=== PATIENT | male | born 1985 | race Caucasian/White ===

== ENCOUNTER 2018-03-11 22:02 | Emergency (ER) | payer SELFPAY ==
[2018-03-11 22:37] LABS: Absolute Lymphocytes (CBC) 1.5 K/uL (0.7-4.9); Absolute Monocytes 1.9 K/uL (0.1-1.3); Absolute Neutrophil 12.4 K/uL (1.8-8.0); Basophils % 0.5 % (0-1.3); Eosinophils % 0.2 % (0-4.4); Hematocrit 47.6 % (39.6-49.0); Lymphocytes % 9.6 % (15.3-44.8); MCH 30.1 pg (27.0-35.0); MCV 87.8 fL (80-100); MPV 7.8 fL (7.6-11.3); Monocytes % 11.9 % (3.3-12.3); RBC Red Blood Cell Count 5.43 M/uL (4.33-5.43)
[2018-03-11 23:04] LABS: Protime INR 1.03
[2018-03-11 23:15] LABS: ALT/SGPT 20 U/L (12-78); AST/SGOT 25 U/L (15-37); Albumin 4.8 g/dL (3.4-5.0); Alkaline Phosphatase 68 U/L (45-117); BUN Blood Urea Nitrogen 18 mg/dL (7-18); Bicarbonate 23 mmol/L (21-32); Bilirubin Direct 0.3 mg/dL (0-0.2); Bilirubin Total 1.6 mg/dL (0.2-1.0); Glucose Level 93 mg/dL (74-106); Potassium 3.2 mmol/L (3.5-5.1); Sodium Level 142 mmol/L (136-145)
[2018-03-11 23:16] LABS: Alcohol Serum/Plasma 6 mg/dL (0-3)
[2018-03-12] MEDS ORDERED: POTASSIUM CL SA 10 MEQ TAB PO ONE (01:46)
[2018-03-12 03:06] LABS: Barbiturates NEGATIVE (NEGATIVE); Benzodiazepines POSITIVE (NEGATIVE); Cocaine NEGATIVE (NEGATIVE); METHAMPHETAM POSITIVE (NEGATIVE); Methadone NEGATIVE (NEGATIVE); Opiates NEGATIVE (NEGATIVE); Phencyclidine NEGATIVE (NEGATIVE); THC Cannibis NEGATIVE (NEGATIVE)
[2018-03-12 03:39] LABS: Urine Blood NEGATIVE (NEG); Urine Glucose NEGATIVE (NEG); Urine Protein TRACE (NEG); Urine Specific Gravity 1.015 (1.005-1.030)
--- NOTE | 2018-03-12 07:48 | ER ---
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 a hallway bed/chair. Sitter present at this time. 10:00 Pt. is pacing. Appears restless. pt states "i want my quest to leave im tired of being tw2 watched", provider notified and medicated as ordered. Safety Checks: Personal items have been removed. The door is open or patient has been placed in a hallway bed/chair. Sitter present at this time. 10:15 Safety Checks: Personal items have been removed. The door is open or patient has been tw2 placed in a hallway bed/chair. Sitter present at this time. 10:30 Safety Checks: Personal items have been removed. The door is open or patient has been tw2 placed in a hallway bed/chair. Sitter present at this time. 10:45 Safety Checks: Personal items have been removed. The door is open or patient has been tw2 placed in a hallway bed/chair. Sitter present at this time. 11:00 Safety Checks: Personal items have been removed. The door is open or patient has been tw2 placed in a hallway bed/chair. Sitter present at this time. 11:15 Safety Checks: Personal items have been removed. The door is open or patient has been tw2 placed in a hallway bed/chair. Sitter present at this time. 11:30 Safety Checks: Personal items have been removed. The door is open or patient has been tw2 placed in a hallway bed/chair. Sitter present at this time. 11:34 Safety checks: Items removed: yes. Door open/sign placed on door: yes. Family/friend dg1 present: no. 11:45 Safety Checks: Personal items have been removed. The door is open or patient has been tw2 placed in a hallway bed/chair. Sitter present at this time. 12:00 No apparent distress. Appears restless. Safety Checks: Personal items have been tw2 removed. The door is open or patient has been placed in a hallway bed/chair. Sitter present at this time. 12:04 Safety checks: Items removed: Door open/sign placed on door: Family/friend present: dg1 yes. Family/friends encouraged to stay with patient. 12:15 Safety Checks: Personal items have been removed. The door is open or patient has been tw2 placed in a hallway bed/chair. Sitter present at this time. 12:30 Safety Checks: Personal items have been removed. The door is open or patient has been tw2 placed in a hallway bed/chair. Sitter present at this time. 12:37 Report given to Queenie Barcenas RN at [facility], she will give information to the doctor and call us back if they accept the pt. 12:45 Safety Checks: Personal items have been removed. The door is open or patient has been tw2 placed in a hallway bed/chair. Sitter present at this time. 13:00 Safety Checks: Personal items have been removed. The door is open or patient has been tw2 placed in a hallway bed/chair. Sitter present at this time. 13:00 No apparent distress. Resting quietly. tw2 13:02 Safety checks: Items removed: yes. Door open/sign placed on door: yes. Family/friend dg1 present: no. 13:15 Safety Checks: Personal items have been removed. The door is open or patient has been tw2 placed in a hallway bed/chair. Sitter present at this time. 13:30 Safety Checks: Personal items have been removed. The door is open or patient has been tw2 placed in a hallway bed/chair. Sitter present at this time. 13:34 Safety checks: Items removed: yes. Door open/sign placed on door: yes. Family/friend dg1 present: yes. Family/friends encouraged to stay with patient. 13:45 Safety Checks: Personal items have been removed. The door is open or patient has been tw2 placed in a hallway bed/chair. Sitter present at this time. 14:00 Safety Checks: Personal items have been removed. The door is open or patient has been tw2 placed in a hallway bed/chair. Sitter present at this time. 14:00 Safety checks: Items removed: yes. Door open/sign placed on door: yes. Family/friend dg1 present: yes. Family/friends encouraged to stay with patient. 14:15 Safety Checks: Personal items have been removed. The door is open or patient has been tw2 placed in a hallway bed/chair. Sitter present at this time. 14:29 Safety checks: Items removed: yes. Door open/sign placed on door: yes. Family/friend dg1 present: yes. Family/friends encouraged to stay with patient. 14:30 No apparent distress. Safety Checks: Personal items have been removed. The door is open tw2 or patient has been placed in a hallway bed/chair. Sitter present at this time. 14:45 Safety Checks: Personal items have been removed. The door is open or patient has been tw2 placed in a hallway bed/chair. Sitter present at this time. 15:00 Safety Checks: Personal items have been removed. The door is open or patient has been tw2 placed in a hallway bed/chair. Sitter present at this time. 15:00 Safety checks: Items removed: yes. Door open/sign placed on door: yes. Family/friend dg1 present: no. 15:15 Pt. is pacing. Appears restless. pt ran out of room into another pts room and this tw2 time, security was called and at bedside with sitter. Safety Checks: Personal items have been removed. The door is open or patient has been placed in a hallway bed/chair. Sitter present at this time. 15:30 Safety Checks: Personal items have been removed. The door is open or patient has been tw2 placed in a hallway bed/chair. Sitter present at this time. 15:32 Safety checks: Items removed: yes. Door open/sign placed on door: yes. Family/friend dg1 present: no. 15:45 Pt. is pacing. medicated as ordered. Safety Checks: Personal items have been removed. tw2 The door is open or patient has been placed in a hallway bed/chair. Sitter present at this time. 16:00 No apparent distress. Resting quietly. Safety Checks: Personal items have been removed. tw2 The door is open or patient has been placed in a hallway bed/chair. Sitter present at this time. 16:15 Safety Checks: Personal items have been removed. The door is open or patient has been tw2 placed in a hallway bed/chair. Sitter present at this time. 16:30 No apparent distress. Resting quietly. Safety Checks: Personal items have been removed. tw2 The door is open or patient has been placed in a hallway bed/chair. Sitter present at this time. 16:45 No apparent distress. Safety Checks: Personal items have been removed. The door is open tw2 or patient has been placed in a hallway bed/chair. Sitter present at this time. 17:00 No apparent distress. pt eating dinner tray at this time. Safety Checks: Personal items tw2 have been removed. The door is open or patient has been placed in a hallway bed/chair. Sitter present at this time. 17:10 Safety checks: Items removed: yes. Door open/sign placed on door: yes. Family/friend jb1 present: no. 17:15 No apparent distress. Safety Checks: Personal items have been removed. The door is open tw2 or patient has been placed in a hallway bed/chair. Sitter present at this time. 17:30 No apparent distress. Safety Checks: Personal items have been removed. The door is open tw2 or patient has been placed in a hallway bed/chair. Sitter present at this time. 17:31 Safety checks: Items removed: yes. Door open/sign placed on door: yes. Family/friend jb1 present: no. 17:45 No apparent distress. Safety Checks: Personal items have been removed. The door is open tw2 or patient has been placed in a hallway bed/chair. Sitter present at this time. 18:00 No apparent distress. Resting quietly. Safety Checks: Personal items have been removed. tw2 The door is open or patient has been placed in a hallway bed/chair. Sitter present at this time. 18:04 Safety checks: Items removed: yes. Door open/sign placed on door: yes. Family/friend dg1 present: no. 18:15 No apparent distress. Resting quietly. Safety Checks: Personal items have been removed. tw2 The door is open or patient has been placed in a hallway bed/chair. Sitter present at this time. 18:30 No apparent distress. Safety Checks: Personal items have been removed. The door is open tw2 or patient has been placed in a hallway bed/chair. Sitter present at this time. 18:38 Safety checks: Items removed: yes. Door open/sign placed on door: yes. Family/friend dg1 present: no. 18:39 CALL [facility] FOR BEDS AND STILL NO AVAILABILITY REFAXED NEW LAB STILL WAITING ON A BED. ag 18:45 No apparent distress. Safety Checks: Personal items have been removed. The door is open tw2 or patient has been placed in a hallway bed/chair. Sitter present at this time. 18:56 Report given to VADIM Mckeon. tw2 19:00 Safety Checks: Personal items have been removed. The door is open or patient has been tw2 placed in a hallway bed/chair. Sitter present at this time. 19:15 Safety Checks: Personal items have been removed. The door is open or patient has been ak1 placed in a hallway bed/chair. There are no family/friend visitors at this time Sitter present at this time. 19:30 Safety Checks: Personal items have been removed. The door is open or patient has been ak1 placed in a hallway bed/chair. There are no family/friend visitors at this time Sitter present at this time. 19:45 Safety Checks: Personal items have been removed. The door is open or patient has been ak1 placed in a hallway bed/chair. There are no family/friend visitors at this time Sitter present at this time. Other: pt finished eating his dinner tray. 20:00 Safety Checks: Personal items have been removed. The door is open or patient has been ak1 placed in a hallway bed/chair. There are no family/friend visitors at this time Sitter present at this time. 20:15 Safety Checks: Personal items have been removed. The door is open or patient has been ak1 placed in a hallway bed/chair. There are no family/friend visitors at this time Sitter present at this time. 20:25 Safety checks: Items removed: yes. Door open/sign placed on door: yes. Family/friend ks6 present: no. Sitter at bedside. 20:35 Safety checks: Items removed: yes. Door open/sign placed on door: yes. Family/friend mw2 present: no. 20:45 Safety checks: Items removed: yes. Door open/sign placed on door: yes. Family/friend mw2 present: no. 21:00 Safety checks: Door open/sign placed on door: yes. Family/friend present: no. mw2 21:15 Safety checks: Items removed: yes. Door open/sign placed on door: yes. Family/friend mw2 present: no. 21:27 Sitter at bedside. ks6 21:30 Safety checks: Items removed: yes. Door open/sign placed on door: yes. Family/friend mw2 present: no. 21:45 Safety checks: Items removed: yes. Door open/sign placed on door: yes. Family/friend mw2 present: no. 22:00 Safety checks: Items removed: yes. Door open/sign placed on door: yes. Family/friend mw2 present: no. 22:15 Safety checks: Items removed: yes. Door open/sign placed on door: yes. Family/friend mw2 present: no. 22:30 Safety checks: Items removed: yes. Door open/sign placed on door: yes. Family/friend mw2 present: no. 22:45 Primary Nurse role handed off by Kalani Orta RN rg2 22:45 Safety checks: Items removed: yes. Door open/sign placed on door: yes. Family/friend mw2 present: no. 23:00 Safety checks: Items removed: yes. Door open/sign placed on door: yes. Family/friend mw2 present: no. 23:15 Safety checks: Items removed: yes. Door open/sign placed on door: yes. Family/friend mw2 present: no. 23:30 Safety checks: Items removed: yes. Door open/sign placed on door: yes. Family/friend mw2 present: no. 23:45 Safety checks: Items removed: yes. Door open/sign placed on door: yes. Family/friend mw2 present: no. 03/13 00:00 Safety checks: Items removed: yes. Door open/sign placed on door: yes. Family/friend mw2 present: no. 00:15 Safety checks: Items removed: yes. Door open/sign placed on door: yes. Family/friend mw2 present: no. 00:30 Safety checks: Items removed: yes. Door open/sign placed on door: yes. Family/friend mw2 present: no. 00:45 Safety checks: Items removed: yes. Door open/sign placed on door: yes. Family/friend mw2 present: no. 01:00 Safety checks: Items removed: yes. Door open/sign placed on door: yes. Family/friend mw2 present: no. 01:15 Safety checks: Items removed: yes. Door open/sign placed on door: yes. Family/friend mw2 present: no. 01:30 Safety checks: Items removed: yes. Door open/sign placed on door: yes. Family/friend mw2 present: no. 01:45 Safety checks: Items removed: yes. Door open/sign placed on door: yes. Family/friend mw2 present: no. 02:00 Safety Checks: Personal items have been removed. The door is open or patient has been ea placed in a hallway bed/chair. There are no family/friend visitors at this time Sitter present at this time. Other: Pt resting with eyes closed, respirations even and unlabored. Chest expansions even and symmetrical. No s/s of pain or discomfort noted at this time. 02:00 Safety checks: Items removed: yes. Door open/sign placed on door: yes. Family/friend mw2 present: no. 02:15 Safety Checks: Personal items have been removed. The door is open or patient has been ea placed in a hallway bed/chair. There are no family/friend visitors at this time Sitter present at this time. 02:15 Safety checks: Items removed: yes. Door open/sign placed on door: yes. Family/friend mw2 present: no. 02:30 Safety Checks: Personal items have been removed. The door is open or patient has been ea placed in a hallway bed/chair. There are no family/friend visitors at this time Sitter present at this time. 02:30 Safety checks: Items removed: yes. Door open/sign placed on door: yes. Family/friend mw2 present: no. 02:45 Safety Checks: Personal items have been removed. The door is open or patient has been ea placed in a hallway bed/chair. There are no family/friend visitors at this time Sitter present at this time. 02:45 Safety checks: Items removed: yes. Door open/sign placed on door: yes. Family/friend mw2 present: no. 03:00 Safety checks: Items removed: yes. Door open/sign placed on door: yes. Family/friend mw2 present: no. 03:15 Safety checks: Items removed: yes. Door open/sign placed on door: yes. Family/friend mw2 present: no. 03:30 Safety checks: Items removed: yes. Door open/sign placed on door: yes. Family/friend mw2 present: no. Safety checks: Items removed:. 03:45 Safety Checks: Personal items have been removed. The door is open or patient has been ak1 placed in a hallway bed/chair. There are no family/friend visitors at this time Sitter present at this time. 04:00 Safety Checks: Personal items have been removed. The door is open or patient has been ak1 placed in a hallway bed/chair. There are no family/friend visitors at this time Sitter present at this time. 04:15 Safety Checks: Personal items have been removed. The door is open or patient has been ak1 placed in a hallway bed/chair. There are no family/friend visitors at this time Sitter present at this time. 04:30 Safety Checks: Personal items have been removed. The door is open or patient has been ak1 placed in a hallway bed/chair. There are no family/friend visitors at this time Sitter present at this time. 04:45 Safety Checks: Personal items have been removed. The door is open or patient has been ak1 placed in a hallway bed/chair. There are no family/friend visitors at this time Sitter present at this time. 05:00 Safety Checks: Personal items have been removed. The door is open or patient has been ak1 placed in a hallway bed/chair. There are no family/friend visitors at this time Sitter present at this time. 05:00 Safety checks: Items removed: yes. Door open/sign placed on door: yes. Family/friend ks6 present: no. Sitter at bedside. 05:15 Safety Checks: Personal items have been removed. The door is open or patient has been ak1 placed in a hallway bed/chair. There are no family/friend visitors at this time Sitter present at this time. 05:15 Safety checks: Items removed: yes. Door open/sign placed on door: yes. Family/friend ks6 present: no. Sitter at bedside. 05:30 Safety Checks: Personal items have been removed. The door is open or patient has been ak1 placed in a hallway bed/chair. There are no family/friend visitors at this time Sitter present at this time. 05:36 Safety checks: Items removed: yes. Safety checks: Door open/sign placed on door: yes. ks6 Family/friend present: no. Sitter at bedside. 05:45 Safety Checks: Personal items have been removed. The door is open or patient has been ak1 placed in a hallway bed/chair. There are no family/friend visitors at this time Sitter present at this time. 05:50 Safety checks: Items removed: yes. Door open/sign placed on door: yes. Family/friend ks6 present: no. Sitter at bedside. 06:00 Safety Checks: Personal items have been removed. The door is open or patient has been ak1 placed in a hallway bed/chair. There are no family/friend visitors at this time Sitter present at this time. 06:00 Safety Checks: Personal items have been removed. The door is open or patient has been ak1 placed in a hallway bed/chair. There are no family/friend visitors at this time Sitter present at this time. 06:09 Safety checks: Items removed: yes. Door open/sign placed on door: yes. Family/friend ks6 present: no. Sitter at bedside. 06:15 Safety Checks: Personal items have been removed. The door is open or patient has been ak1 placed in a hallway bed/chair. There are no family/friend visitors at this time Sitter present at this time. 06:30 Safety Checks: Personal items have been removed. The door is open or patient has been ak1 placed in a hallway bed/chair. There are no family/friend visitors at this time Sitter present at this time. 06:45 Safety Checks: Personal items have been removed. The door is open or patient has been ak1 placed in a hallway bed/chair. There are no family/friend visitors at this time Sitter present at this time. 06:55 Safety Checks: Personal items have been removed. The door is open or patient has been ak1 placed in a hallway bed/chair. There are no family/friend visitors at this time Sitter present at this time. 07:00 Safety checks: Items removed: yes. Door open/sign placed on door: yes. Family/friend dh3 present: no. 07:15 Safety checks: Items removed: yes. Door open/sign placed on door: yes. Family/friend dh3 present: no. 07:30 Safety checks: Items removed: yes. Door open/sign placed on door: yes. Family/friend dh3 present: no. 07:45 Safety checks: Items removed: yes. Door open/sign placed on door: yes. Family/friend dh3 present: no. 08:00 Safety checks: Items removed: yes. Door open/sign placed on door: yes. Family/friend dh3 present: no. 08:15 Safety checks: Items removed: yes. Door open/sign placed on door: yes. Family/friend dh3 present: no. 08:30 Safety checks: Items removed: yes. Door open/sign placed on door: yes. Family/friend dh3 present: no. 08:45 Safety checks: Items removed: yes. Door open/sign placed on door: yes. Family/friend dh3 present: no. 09:00 Safety checks: Items removed: yes. Door open/sign placed on door: yes. Family/friend dh3 present: no. 09:15 Safety checks: Items removed: yes. Door open/sign placed on door: yes. Family/friend dh3 present: no. 09:30 Safety checks: Items removed: yes. Door open/sign placed on door: yes. Family/friend dh3 present: no. 09:45 Safety checks: Items removed: yes. Door open/sign placed on door: yes. Family/friend dh3 present: no. 10:00 Safety checks: Items removed: yes. Door open/sign placed on door: yes. Family/friend dh3 present: no. 10:15 Safety checks: Items removed: yes. Door open/sign placed on door: yes. Family/friend dh3 present: no. 10:30 Safety checks: Items removed: yes. Door open/sign placed on door: yes. Family/friend dh3 present: no. 10:45 Safety checks: Items removed: yes. Door open/sign placed on door: yes. Family/friend dh3 present: no. 11:00 Safety checks: Items removed: yes. Door open/sign placed on door: yes. Family/friend dh3 present: no. 11:15 Safety checks: Items removed: yes. Door open/sign placed on door: yes. Family/friend dh3 present: no. 11:30 Safety checks: Items removed: yes. Door open/sign placed on door: yes. Family/friend dh3 present: no. 12:30 IV discontinued, intact, bleeding controlled, No redness/swelling at site. Pressure ss dressing applied. Administered Medications: 03/12 01:46 Drug: Potassium Chloride 40 mEq Route: PO; ea 02:00 Follow up: Response: No adverse reaction ak1 07:48 Drug: NS 0.9% 1000 ml Route: IV; Rate: 1 bolus; Site: right forearm; hj 07:54 Follow up: IV Status: Completed infusion; Infusion continued hj 10:25 Drug: Ativan 1 mg Route: IVP; Site: right forearm; aj 11:00 Follow up: Response: No adverse reaction; Marked relief of symptoms tw2 15:44 Drug: Ativan 1 mg Route: IVP; Site: right forearm; iw 15:49 Follow up: Response: No adverse reaction; Anxiety decreased hj 17:15 Drug: Nicotine 21 mg/24 hr 1 patches {Note: back of left arm per pts request.} Route: tw2 Transdermal; Site: affected area; 18:07 Follow up: Response: No adverse reaction tw2 Outcome: 07:47 ER care complete, transfer ordered by MD. huang 03/13 12:30 Transferred to [facility], [facility] [place], Note: To [facility] with ss Sergeant Santos with [facility] department after emergency mental health warrant had been signed and issued by Judge Madrigal. 12:44 Patient left the ED. em1 18:41 Condition: good ss 18:41 Instructed on the need for transfer. Signatures: Ashleigh Ronnie jb1 Tea, Jordan rg2 Billy Rothman, RN Daysi Humphrey, RN Brandon Wisdom MD MD cha Mickail, Joel, PA PA jmm Chretien, Felicia, RN RN Haynes, Jessa ds1 Anabela Padilla, RN VADIM iw Enrique Vance em1 Tanisha Peters, RN VADIM ss Pa, Linda Anthony RN RN ak1 Paresh Del Rio RN Kalani Garcia RN RN 2 [facility]3 Genesis Rodriguez RN Shay Alvarado ea, MD MD tw4 Armani Hernandez mw2 Chong Solano RN RN mg2 Miguel Alicia ks6 Tashia Geller dg1 Corrections: (The following items were deleted from the chart) 03/12 04:10 02:36 Reassessment: mg2 ak1 12:05 11:24 Safety Checks: Personal items have been removed. The door is open or patient has tw2 been placed in a hallway bed/chair. Sitter present at this time. tw2 22:15 21:27 Safety checks: Items removed: yes. Door open/sign placed on door: yes. 2 Family/friend present: no. ks6 03/13 06:00 05:15 Safety Checks: Personal items have been removed. The door is open or patient has ak1 been placed in a hallway bed/chair. There are no family/friend visitors at this time Sitter present at this time. ak1 08:37 07:00 Safety checks: Items removed: yes. Door open/sign placed on door: yes. dh3 Family/friend present: Other: sitter at bedside dh3 08:37 07:15 Safety checks: Items removed: yes. Door open/sign placed on door: yes. 3 Family/friend present: Other: sitter at bedside 3 08:38 07:30 Safety checks: Items removed: yes. Door open/sign placed on door: yes. dh3 Family/friend present: Other: sitter at bedside 3 08:41 07:00 Safety checks: Items removed: yes. Door open/sign placed on door: yes. dh3 Family/friend present: no. dh3 08:41 07:30 Safety checks: Items removed: yes. Door open/sign placed on door: yes. dh3 Family/friend present: Other: sitter at bedside [facility] 08:42 07:45 Safety checks: Items removed: yes. Door open/sign placed on door: yes. dh3 Family/friend present: Other: sitter at bedside [facility] 08:43 08:00 Safety checks: Items removed: yes. Door open/sign placed on door: yes. dh3 Family/friend present: Other: sitter at bedside [facility] 08:43 08:15 Safety checks: Items removed: yes. Door open/sign placed on door: yes. dh3 Family/friend present: Other: sitter at bedside [facility] 08:43 08:30 Safety checks: Items removed: yes. Door open/sign placed on door: yes. dh3 Family/friend present: Other: sitter at bedside [facility] 08:45 08:30 Safety checks: [place] [id number] 10:39 08:45 Safety checks: Items removed: yes. Door open/sign placed on door: yes. dh3 Family/friend present: no. Safety checks: Items removed: yes. Door open/sign placed on door: yes. Family/friend present: no. [facility] [facility] 18:44 12:30 Transferred to [facility], [facility] [place], Note: To [facility] 18:45 12:30 Reassessment: Judge Madrigal and Sari Santos here to sign Emergency Mental Health Warrant and to transfer patient to [facility].
--- NOTE | 2018-03-12 07:48 | EDPHYS ---
Physician Documentation [facility] Name: Miguel Angel Vazquez Age: 32 yrs Sex: Male : 1985 Arrival Date: 03/11/2018 Time: 22:04 Bed 8 Private MD: ED Physician Brandon Mercado HPI: 03/12 06:48 This 32 yrs old Male presents to ER via Law Enforcement with complaints of tw4 Suicidal Ideation. 06:48 The patient presents to the emergency department with suicide ideation, and the patient tw4 has a plan, burn himself. Onset: The symptoms/episode began/occurred today. Past psychiatric history: Prior diagnosis: schizophrenia. Associated signs and symptoms: The patient has no apparent associated signs or symptoms. Severity of symptoms: At their worst the symptoms were moderate in the emergency department the symptoms are unchanged. The patient has not experienced similar symptoms in the past. Historical: - Allergies: 03/11 22:22 No Known Allergies; fc - Home Meds: 22:22 None [Active]; fc - PMHx: 22:22 Anxiety; fc - PSHx: 22:22 Hernia repair; fc - Immunization history:: Last tetanus immunization: unknown. - Social history:: Smoking status: Patient uses tobacco products, smokes one pack cigarettes per day. Patient uses alcohol, on a daily basis. street drugs, marijuana, Methamphetamine (Meth). - Ebola Screening: : Patient negative for fever greater than or equal to 101.5 degrees Fahrenheit, and additional compatible Ebola Virus Disease symptoms Patient denies exposure to infectious person Patient denies travel to an Ebola-affected area in the 21 days before illness onset. ROS: 03/12 06:48 Constitutional: Negative for fever, chills, and weight loss, Cardiovascular: Negative tw4 for chest pain, palpitations, and edema, Respiratory: Negative for shortness of breath, cough, wheezing, and pleuritic chest pain, Abdomen/GI: Negative for abdominal pain, nausea, vomiting, diarrhea, and constipation, Back: Negative for injury and pain. Psych: Negative for depression. Exam: 06:48 Constitutional: This is a well developed, well nourished patient who is awake, alert, tw4 and in no acute distress. Cardiovascular: Regular rate and rhythm with a normal S1 and S2. No gallops, murmurs, or rubs. Normal PMI, no JVD. No pulse deficits. Respiratory: Lungs have equal breath sounds bilaterally, clear to auscultation and percussion. No rales, rhonchi or wheezes noted. No increased work of breathing, no retractions or nasal flaring. Abdomen/GI: Soft, non-tender, with normal bowel sounds. No distension or tympany. No guarding or rebound. No evidence of tenderness throughout. 06:55 MS/ Extremity: Pulses equal, no cyanosis. Neurovascular intact. Full, normal range tw4 of motion. Neuro: Awake and alert, GCS 15, oriented to person, place, time, and situation. Cranial nerves II-XII grossly intact. Motor strength 5/5 in all extremities. Sensory grossly intact. Cerebellar exam normal. Normal gait. 06:55 Psych: Behavior/mood is anxious, suicidal, Affect is animated, Oriented to person, place, time, Patient having thoughts of suicide. Denies suicidal plan. Judgement / Insight is impaired. Vital Signs: 03/11 22:00 BP 129 / 80; Pulse 130; Resp 26; Temp 98.8(O); Pulse Ox 100% on R/A; Weight 65.77 kg fc (R); Height 5 ft. 7 in. (170.18 cm) (R); Pain 3/10; 23:23 BP 152 / 87; Pulse 109; Resp 20; Pulse Ox 98% on R/A; Pain 0/10; ak1 07/03 04:09 BP 121 / 87; Pulse 105; Resp 16; Temp 98.4(O); Pulse Ox 98% on R/A; Pain 0/10; ak1 11:41 BP 97 / 69; Pulse 83; Resp 18; Pulse Ox 98% ; dg1 13:04 BP 104 / 79; Pulse 82; Resp 16; Pulse Ox 99% ; dg1 13:42 BP 130 / 90; Pulse 115; Resp 22; Temp 98.6; Pulse Ox 100% ; dg1 16:08 BP 102 / 89; Pulse 110; Resp 18; Temp 98.6; Pulse Ox 100% ; dg1 18:37 BP 106 / 86; Pulse 92; Resp 20; Temp 97.4; Pulse Ox 98% ; dg1 20:21 BP 111 / 95; Pulse 110; Resp 20; Temp 97.5(TE); Pulse Ox 100% on R/A; Pain 0/10; ak1 03/13 00:31 BP 99 / 58; Pulse 71; Resp 16; Temp 98.3; Pulse Ox 99% on R/A; mw2 08:00 BP 95 / 71; Pulse 93; Resp 20; Temp 97.7(O); Pulse Ox 100% on R/A; dh3 12:00 BP 103 / 61; Pulse 84 MON; Resp 17; Pulse Ox 99% on R/A; sg 03/11 22:00 Body Mass Index 22.71 (65.77 kg, 170.18 cm) fc MDM: 03/11 22:14 Patient medically screened. 03/11 22:15 Order name: Acetaminophen; Complete Time: 00:12 [facility] 03/11 22:15 Order name: Basic Metabolic Panel; Complete Time: 00:12 03/12 00:13 Interpretation: Normal except: K 3.2; CL 108; GFR 70. 03/11 22:15 Order name: CBC with Diff; Complete Time: 00:12 03/12 00:13 Interpretation: Normal except: WBC 15.9; TRISTA% 77.8; LYM% 9.6; NEUT A 12.4. 03/11 22:15 Order name: ETOH Level; Complete Time: 00:12 03/12 00:13 Interpretation: ETOH 6. 03/11 22:15 Order name: Hepatic Function; Complete Time: 00:12 [facility] 03/12 00:13 Interpretation: Normal except: BILIT 1.6; BILID 0.3; TP 9.0; GLOB 4.2. 03/11 22:15 Order name: PT-INR; Complete Time: 00:12 03/12 00:14 Interpretation: Within normal limits: PT 12.2. 03/11 22:15 Order name: Ptt, Activated; Complete Time: 00:12 [facility] 03/11 22:15 Order name: Salicylate; Complete Time: 00:12 [facility] 03/12 00:13 Interpretation: Normal except: JAVIER < 1.7. 03/11 22:15 Order name: Urine Drug Screen; Complete Time: 07:41 [facility] 03/12 02:08 Order name: Urine Dipstick--Ancillary (enter results); Complete Time: 07:41 nm 03/12 12:41 Order name: CBC with Diff; Complete Time: 14:32 iw 03/12 12:41 Order name: Basic Metabolic Panel; Complete Time: 14:32 iw 03/11 22:15 Order name: EKG; Complete Time: 22:16 tw4 03/11 22:15 Order name: EKG - Nurse/Tech; Complete Time: 22:34 tw4 03/11 22:15 Order name: IV Saline Lock; Complete Time: 22:34 tw4 03/11 22:15 Order name: Labs collected and sent; Complete Time: 22:34 tw4 03/11 22:15 Order name: Urine Dipstick-Ancillary (obtain specimen); Complete Time: 02:03 tw4 03/12 07:49 Order name: Diet Heart Healthy; Complete Time: 07:49 reina 03/12 12:14 Order name: Diet Regular; Complete Time: 12:14 ag 03/13 07:25 Order name: Diet Regular; Complete Time: 07:25 sg 03/13 10:57 Order name: Diet Regular; Complete Time: 10:57 sg EC/03 06:55 Rhythm is regular. QRS [place] is Normal. UT interval is normal. QRS interval is normal. tw4 QT interval is normal. No Q waves. T waves are Normal. No ST changes noted. Clinical impression: Sinus tachycardia. Interpreted by me. Reviewed by me. Administered Medications: 01:46 Drug: Potassium Chloride 40 mEq Route: PO; ea 02:00 Follow up: Response: No adverse reaction ak1 07:48 Drug: NS 0.9% 1000 ml Route: IV; Rate: 1 bolus; Site: right forearm; hj 07:54 Follow up: IV Status: Completed infusion; Infusion continued hj 10:25 Drug: Ativan 1 mg Route: IVP; Site: right forearm; aj 11:00 Follow up: Response: No adverse reaction; Marked relief of symptoms tw2 15:44 Drug: Ativan 1 mg Route: IVP; Site: right forearm; iw 15:49 Follow up: Response: No adverse reaction; Anxiety decreased hj 17:15 Drug: Nicotine 21 mg/24 hr 1 patches {Note: back of left arm per pts request.} Route: tw2 Transdermal; Site: affected area; 18:07 Follow up: Response: No adverse reaction tw2 Disposition: 03/12/18 07:47 Transfer ordered to Psych Facility. Diagnosis are Major depressive disorder, recurrent, Suicidal ideations, Suicide attempt, Abuse of non-psychoactive substances. - Reason for transfer: Higher level of care. - Accepting physician is to psych. - Condition is Stable. - Problem is new. - Symptoms are unchanged. Signatures: Dispatcher [employer] EDMS Daysi Jane, RN Brandon Wisdom MD MD cha Chretien, Felicia, RN Anabela Reyna RN RN iw Nieto, Roman, MD MD rn Martinez, Eric em1 Paresh Del Rio, RN RN hj Kalani Orta RN RN tw2 Genesis Rodriguez RN Shay Alvarado ea, MD MD tw4 Linda Holm RN ak1 Corrections: (The following items were deleted from the chart) 03/13 12:44 07 07:47 03/12/2018 07:47 Transfer ordered to Psych Facility. Diagnosis is Major em1 depressive disorder, recurrent; Suicidal ideations; Suicide attempt; Abuse of non-psychoactive substances. Reason for transfer: Higher level of care. Accepting physician is to psych. Condition is Stable. Problem is new. Symptoms are unchanged. reina
[2018-03-12] MEDS ORDERED: NA CHLORIDE 0.9% 1,000 ML ONE (07:53)
[2018-03-12] MEDS ORDERED: LORazepam 2 MG/ML VIAL ONE (10:24)
[2018-03-12 13:21] LABS: BUN Blood Urea Nitrogen 15 mg/dL (7-18); Bicarbonate 25 mmol/L (21-32); Glucose Level 99 mg/dL (74-106); Potassium 4.1 mmol/L (3.5-5.1); Sodium Level 142 mmol/L (136-145)
[2018-03-12 13:45] LABS: Absolute Lymphocytes (CBC) 1.8 K/uL (0.7-4.9); Absolute Monocytes 1.1 K/uL (0.1-1.3); Absolute Neutrophil 4.6 K/uL (1.8-8.0); Basophils % 0.5 % (0-1.3); Eosinophils % 1.7 % (0-4.4); Hematocrit 43.2 % (39.6-49.0); Lymphocytes % 23.1 % (15.3-44.8); MCV 89.7 fL (80-100); MPV 7.4 fL (7.6-11.3); Monocytes % 14.9 % (3.3-12.3); RBC Red Blood Cell Count 4.82 M/uL (4.33-5.43)
--- NOTE | 2018-03-12 15:36 | EKG ---
Test Date: 2018-03-11 Test Time: 22:18:42 Director Biologics: CHRIS MEASUREMENT RESULTS: Intervals: Rate: 133 CT: 130 QRSD: 74 QT: 322 QTc: 479 [place]: P: 65 CT: 130 QRS: 84 T: 58 INTERPRETIVE STATEMENTS: Sinus tachycardia T wave abnormality, consider inferior ischemia Abnormal ECG No previous ECG available for comparison Electronically Signed On 03-12-18 15:34:04 CDT by Mainor Ortiz
[2018-03-12] MEDS ORDERED: NICOTINE 21 MG/PAT TD ONE (17:17)
== END 2018-03-13 12:44 ==
LOC: ER 22:02
DX: R45.851 Suicidal ideations (principal); F32.9 Major depressive disorder, single episode, unspecified; F55.8 Abuse of other non-psychoactive substances; F17.210 Nicotine dependence, cigarettes, uncomplicated
CPT/HCPCS: 36415; 80048; 80076; 80307; 80320; 80329; 81003; 85025; 85610; 85730; 93005; 96374; 99285; J7030

== ENCOUNTER 2020-10-13 22:39 | Emergency (ER) | payer SELFPAY ==
--- NOTE | 2020-10-14 01:16 | ER ---
Nurse's Notes [facility] Name: Miguel Angel Vazquez Age: 35 yrs Sex: Male : 1985 Arrival Date: 10/13/2020 Time: 22:40 Bed 8 Private MD: Diagnosis: Hemorrhoids and perianal venous thrombosis-bleeding Presentation: 10/13 22:46 Acuity: NELA 3 sg 22:46 Chief complaint: Patient states: I have been having bloody stools and abdominal pain. sg Coronavirus screen: Client denies travel out of the [place] in the last 14 days. At this time, the client does not indicate any symptoms associated with coronavirus-19. Ebola Screen: Patient negative for fever greater than or equal to 101.5 degrees Fahrenheit, and additional compatible Ebola Virus Disease symptoms Patient denies exposure to infectious person. Patient denies travel to an Ebola-affected area in the 21 days before illness onset. No symptoms or risks identified at this time. Initial Sepsis Screen: Does the patient meet any 2 criteria? No. Patient's initial sepsis screen is negative. Does the patient have a suspected source of infection? No. Patient's initial sepsis screen is negative. Risk Assessment: Do you want to hurt yourself or someone else? Patient reports no desire to harm self or others. Onset of symptoms was October 14, 2020. Care prior to arrival: None. Transition of care: patient was not received from another setting of care. 22:46 Method Of Arrival: Ambulatory sg Historical: - Allergies: 22:46 No Known Allergies; sg - PMHx: 22:46 Anxiety; sg - PSHx: 22:46 Hernia repair; sg - Immunization history:: Adult Immunizations up to date. - Social history:: Smoking status: Patient denies any tobacco usage or history of. Patient uses alcohol, street drugs, Methamphetamine (Meth). Screenin/04 00:47 Abuse screen: Denies threats or abuse. Denies injuries from another. Nutritional rv screening: No deficits noted. Tuberculosis screening: No symptoms or risk factors identified. Fall Risk None identified. Assessment: 00:46 General: Appears uncomfortable, Behavior is calm, cooperative. Pain: Complains of pain rv in RECTAL Quality of pain is described as pressure. Neuro: Level of Consciousness is awake, alert, obeys commands, Oriented to person, place, time, situation. Cardiovascular: Patient's skin is warm and dry. Respiratory: Airway is patent Respiratory effort is even, unlabored. GI: Abdomen is round non-distended, Rectal exam: Bleeding noted. Derm: Skin is intact. Vital Signs: 00:45 BP 131 / 96; Pulse 122; Resp 19; Temp 98.6; Pulse Ox 100% ; Weight 81.65 kg; Height 5 rv ft. 7 in. (170.18 cm); 00:45 Body Mass Index 28.19 (81.65 kg, 170.18 cm) rv ED Course: 02 22:40 Patient arrived in ED. cl3 22:47 Triage completed. sg 23:58 Arm band placed on. 10/14 00:34 Tonio Perez RN is Primary Nurse. rv 00:44 Brandon Mercado MD is Attending Physician. [facility] 00:47 Patient has correct armband on for positive identification. Pulse ox on. NIBP on. rv 01:01 Inserted saline lock: 20 gauge in right antecubital area, using aseptic technique. rv 01:15 Barry Murray MD is Referral Physician. reina 01:25 Assist provider with eye exam Served as a chipper feeder during rectal exam. IV rv discontinued, intact, bleeding controlled, No redness/swelling at site. Pressure dressing applied. Administered Medications: 01:25 Drug: Cipro 500 mg Route: PO; rv 01:25 Follow up: Response: Medication administered at discharge. rv Outcome: 01:15 Discharge ordered by . [facility] 01:26 Discharged to home ambulatory. rv 01:26 Condition: good 01:26 Discharge instructions given to patient, Instructed on discharge instructions, follow up and referral plans. medication usage, Demonstrated understanding of instructions, follow-up care, medications, Prescriptions given X 2. 01:26 Patient left the ED. rv Signatures: Billy Rothman, Brandon Barnett RN, MD MD cha Vicente, Ronaldo, RN RN [place] cl3
--- NOTE | 2020-10-14 01:16 | EDPHYS ---
Physician Documentation [facility] Name: Miguel Angel Vazquez Age: 35 yrs Sex: Male : 1985 Arrival Date: 10/13/2020 Time: 22:40 Bed 8 Private MD: ED Physician Brandon Mercado HPI: 10/14 01:10 This 35 yrs old Male presents to ER via Ambulatory with complaints of Bloody reina Stools. 01:10 The patient presents to the emergency department with bleeding from the rectum/anus, reina that is mild. Onset: The symptoms/episode began/occurred just prior to arrival, yesterday. Context: the patient has no known special context relating to the rectal area complaint(s). Modifying factors: The symptoms are alleviated by nothing, The symptoms are aggravated by bowel movement, movement. Associate signs and symptoms: The patient has no apparent associated signs or symptoms. The patient has not experienced similar symptoms in the past. Historical: - Allergies: 10/13 22:46 No Known Allergies; sg - PMHx: 22:46 Anxiety; sg - PSHx: 22:46 Hernia repair; sg - Immunization history:: Adult Immunizations up to date. - Social history:: Smoking status: Patient denies any tobacco usage or history of. Patient uses alcohol, street drugs, Methamphetamine (Meth). ROS: 10/14 01:11 Constitutional: Negative for fever, chills, and weight loss, Eyes: Negative for injury, reina pain, redness, and discharge, ENT: Negative for injury, pain, and discharge, Neck: Negative for injury, pain, and swelling, Cardiovascular: Negative for chest pain, palpitations, and edema, Respiratory: Negative for shortness of breath, cough, wheezing, and pleuritic chest pain, Back: Negative for injury and pain, : Negative for injury, bleeding, discharge, and swelling, MS/Extremity: Negative for injury and deformity, Skin: Negative for injury, rash, and discoloration, Neuro: Negative for headache, weakness, numbness, tingling, and seizure, Psych: Negative for depression, anxiety, suicide ideation, homicidal ideation, and hallucinations, Allergy/Immunology: Negative for hives, rash, and allergies, Endocrine: Negative for neck swelling, polydipsia, polyuria, polyphagia, and marked weight changes. Abdomen/GI: Positive for rectal pain, rectal bleeding. Exam: 01:11 Constitutional: This is a well developed, well nourished patient who is awake, alert, reina and in no acute distress. Head/Face: Normocephalic, atraumatic. Eyes: Pupils equal round and reactive to light, extra-ocular motions intact. Lids and lashes normal. Conjunctiva and sclera are non-icteric and not injected. Cornea within normal limits. Periorbital areas with no swelling, redness, or edema. ENT: Nares patent. No nasal discharge, no septal abnormalities noted. Tympanic membranes are normal and external auditory canals are clear. Oropharynx with no redness, swelling, or masses, exudates, or evidence of obstruction, uvula midline. Mucous membranes moist. Neck: Trachea midline, no thyromegaly or masses palpated, and no cervical lymphadenopathy. Supple, full range of motion without nuchal rigidity, or vertebral point tenderness. No Meningismus. Chest/axilla: Normal chest wall appearance and motion. Nontender with no deformity. No lesions are appreciated. Cardiovascular: Regular rate and rhythm with a normal S1 and S2. No gallops, murmurs, or rubs. Normal PMI, no JVD. No pulse deficits. Respiratory: Lungs have equal breath sounds bilaterally, clear to auscultation and percussion. No rales, rhonchi or wheezes noted. No increased work of breathing, no retractions or nasal flaring. Back: No spinal tenderness. No costovertebral tenderness. Full range of motion. Male : Normal genitalia with no discharge or lesions. Skin: Warm, dry with normal turgor. Normal color with no rashes, no lesions, and no evidence of cellulitis. MS/ Extremity: Pulses equal, no cyanosis. Neurovascular intact. Full, normal range of motion. Neuro: Awake and alert, GCS 15, oriented to person, place, time, and situation. Cranial nerves II-XII grossly intact. Motor strength 5/5 in all extremities. Sensory grossly intact. Cerebellar exam normal. Normal gait. Psych: Awake, alert, with orientation to person, place and time. Behavior, mood, and affect are within normal limits. 01:11 Abdomen/GI: Inspection: abdomen appears normal, Bowel sounds: normal, Palpation: abdomen is soft and non-tender, Rectal exam: hemorrhoid(s), external, with associated bleeding, with pain, with thrombosis, tenderness, that is mild, Liver: no appreciated palpable abnormalities, Hernia: not appreciated. Vital Signs: 00:45 BP 131 / 96; Pulse 122; Resp 19; Temp 98.6; Pulse Ox 100% ; Weight 81.65 kg; Height 5 rv ft. 7 in. (170.18 cm); 00:45 Body Mass Index 28.19 (81.65 kg, 170.18 cm) rv MDM: 00:44 Patient medically screened. reina 01:13 Differential diagnosis: hemorrhoids. Data reviewed: vital signs, nurses notes. Data reina interpreted: business applications analyst: rate is 122 beats/min, Pulse oximetry: on room air is 100 %. Counseling: I had a detailed discussion with the patient and/or guardian regarding: the historical points, exam findings, and any diagnostic results supporting the discharge/admit diagnosis, lab results. Administered Medications: 01:25 Drug: Cipro 500 mg Route: PO; rv 01:25 Follow up: Response: Medication administered at discharge. rv Disposition: 10/14/20 01:15 Discharged to Home. Impression: Hemorrhoids and perianal venous thrombosis - bleeding. - Condition is Stable. - Discharge Instructions: Hemorrhoids, How to Take a Sitz Bath, Hemorrhoids, [id number]. - Prescriptions for Colace 100 mg Oral Tablet - take 1 tablet by ORAL route every 12 hours; 14 tablet. Cipro 500 mg Oral Tablet - take 1 tablet by ORAL route every 12 hours for 7 days; 14 tablet. - Medication Reconciliation Form, Thank You Letter, Antibiotic Education, Prescription Opioid Use form. - Follow up: Private Physician; When: 2 - 3 days; Reason: Recheck today's complaints, Continuance of care, Re-evaluation by your physician. Follow up: Barry Murray MD; When: 2 - 3 days; Reason: Recheck today's complaints, Re-evaluation by your physician. - Problem is new. - Symptoms have improved. Signatures: Billy Rothman RN RN Brandon Haines MD MD cha Vicente, Ronaldo, RN RN rv Corrections: (The following items were deleted from the chart) 01:26 01:15 10/14/2020 01:15 Discharged to Home. Impression: Hemorrhoids and perianal venous rv thrombosis - bleeding. Condition is Stable. Forms are Medication Reconciliation Form, Thank You Letter, Antibiotic Education, Prescription Opioid Use. Follow up: Private Physician; When: 2 - 3 days; Reason: Recheck today's complaints, Continuance of care, Re-evaluation by your physician. Follow up: Barry Murray; When: 2 - 3 days; Reason: Recheck today's complaints, Re-evaluation by your physician. Problem is new. Symptoms have improved. reina
[2020-10-14] MEDS ORDERED: CIPROFLOXACIN HCL 500 MG TAB ONE (01:35)
[2020-10-14 02:06] VITALS: BP 131/96; TEMP 98.6; O2SAT 100
== END 2020-10-14 01:26 | disposition home or self-care (01) ==
LOC: ER 22:39
DX: K64.5 Perianal venous thrombosis (principal)
CPT/HCPCS: 99284